=== PATIENT | male | born 1995 | race Caucasian/White ===

== ENCOUNTER 2020-07-31 18:37 | Emergency (ER) | payer SELFPAY ==
[~2020-07-31] VITALS: Ht 170.2 cm; Wt 72.6 kg
[2020-07-31 18:39] VITALS: BP 128/78
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
[2020-07-31] MEDS ORDERED: BACITRACIN OINT 500 UNITS/GM PKT TP ONE (19:00)
[2020-07-31 19:17] VITALS: BP 128/78
--- NOTE | 2020-07-31 19:17 | NUR ---
PATIENT BIB [employer]. PATIENT EXAMINED BY PRABHJOT SUAREZ. PATIENT MEDICALLY CLEARED AND RELEASED IN CUSTODY IN STABLE CONDITION. ORIGINAL PRE-BOOK FORM GIVEN TO OFFICER MINNIE.
== END 2020-07-31 19:17 | disposition home or self-care (01) ==
LOC: MED 18:37
DX: T24.231A Burn of second degree of right lower leg, initial encounter (principal); X08.8XXA Exposure to other specified smoke, fire and flames, initial encounter; Y93.89 Activity, other specified; Y92.89 Other specified places as the place of occurrence of the external cause; Y99.8 Other external cause status
CPT/HCPCS: 16000; 16020; 99283